=== PATIENT | female | born 1985 | race Caucasian/White ===

== ENCOUNTER → 2025-04-01 12:19 | Outpatient (REF) | payer BC, SELFPAY | LOC: DHSLP 12:19 | PROVIDERS: ATTENDING PHYSICIAN Otolaryngology; FAMILY PHYSICIAN Physician Assistant | DX: G47.33 Obstructive sleep apnea (adult) (pediatric) (principal); R06.83 Snoring; G47.8 Other sleep disorders | CPT/HCPCS: 95800 ==